=== PATIENT | male | born 1980 | race Caucasian/White ===

== ENCOUNTER 2016-12-13 13:17 | Emergency (ER) | payer BC ==
[~2016-12-13] VITALS: Ht 177.8 cm; Wt 87.0 kg
[2016-12-13 13:22] VITALS: TEMP 36.8; Ht 177.8 cm; Wt 87.0 kg
[2016-12-13] MEDS ORDERED: HYDR-5688 PO (13:39)
[2016-12-13] MEDS ORDERED: CYCL10TA6 PO (13:39)
[2016-12-13] MEDS ORDERED: LISI-461 PO (13:39)
[2016-12-13] MEDS ORDERED: RANI150T3 PO (13:40)
[2016-12-13] MEDS ORDERED: CITA20TA9 PO (13:40)
[2016-12-13] MEDS ORDERED: METO25TA3 PO (13:40)
[2016-12-13] MEDS ORDERED: PANT40TA PO (13:40)
[2016-12-13] MEDS ORDERED: KETOROLAC TROMETHAMINE 60 MG/2 ML VIAL IM STA (14:20)
[2016-12-13] MEDS ORDERED: HYDROmorphone INJ 1 MG/ML SYR IM STA (14:20)
[2016-12-13] MEDS ORDERED: ONDANSETRON 4MG OD TAB PO STA (14:20)
[2016-12-13] MEDS ORDERED: DEXAMETHASONE SOD INJ 10 MG/ML VIAL IM ONE (14:30)
[2016-12-13] MEDS ORDERED: METH4PAK PO (14:38)
--- NOTE | 2016-12-13 14:40 | EMERGENCY ROOM VISIT NOTE ---
ED Visit Note First contact with patient: 13:33 CHIEF COMPLAINT: Increased low back pain 3 days HISTORY OF PRESENT ILLNESS: Patient is a 36-year-old white male with past medical history significant for chronic low back pain who presents emergency department for evaluation of increased low back pain over the last 3-4 days. Patient works as a [employer]. His job is very labor intensive. He reports chronic midline low back pain, from his PICC line, up his lumbar spine and slightly. He receives regular Tar Heel prescriptions from his PCP, and is prescribed 15/325 mg tablet to be used up to 4 times daily. An MRI from about 3 years ago showed spinal stenosis and bulging disks in his back. He sees a chiropractor regularly. Patient reports increased pain over the last 3-4 days. It is unalleviated by his hydrocodone. He denies any radiation of his pain into his buttocks or legs. No numbness, tingling or weakness in the lower extremities. No bowel or bladder incontinence or saddle anesthesias. He has a TENS unit, has been performing some stretching exercises and recently purchased an inversion table, but has yet to try this for his symptoms. He was unable to get in with his PCP. He had previously been seen by pain management in [place] where he had a series of epidural steroid injections performed with minimal relief. They did contact the pain management office as well, but does not have an appointment until next week. He is not on any NSAIDs regularly. He had been on Mobic that this caused GI issues so it was discontinued. He reports that his last episode of pain similar to this was in 2011, when he was started on the Tar Heel. He is also on Flexeril regularly. He rates his pain a 10/10. REVIEW OF SYSTEMS: Review of systems as per HPI. All other systems reviewed were negative. 10 systems reviewed. PMH: Electronic medical records are reviewed and summarized as above/below. See Problem List. SOCIAL HISTORY: Patient lives at home with his and children. Employed as a [employer]. Does not smoke. PHYSICAL EXAM: Vital Signs: Reviewed Nurse's notes. CONSTITUTIONAL: Patient is a well-appearing 36-year-old white male who is awake and alert and sitting on the edge of the gurney in no acute distress. There is no apparent discomfort with position changes. NECK: Supple without lymphadenopathy. No thyromegaly. No meningeal signs. Full active range of motion without discomfort. CARDIOVASCULAR: Regular rate and rhythm, with normal S1 and S2, no murmur or gallop or rub is heard. No carotid bruits auscultated. No JVD. Peripheral pulses easily palpable. RESPIRATORY: Breath sounds equal and clear to auscultation without wheezes, rales, or rhonchi heard. Full and equal chest expansion without accessory muscle use or retractions. ABDOMEN: Bowel sounds are present. Abdomen is soft, nontender and nondistended. INTEGUMENTARY: No lesions or rash, normal skin turgor. LYMPH: No lymphadenopathy. SPINE: Examination of the patient's back does not demonstrate any ecchymosis, abrasions or outward signs of trauma. No erythema, increased warmth or induration. There is no reproducible midline discomfort to palpation. There is no pain over the SI joint or the sciatic notch. He has increased pain with range of motion including rotation and flexion. EXTREMITIES: Leg lengths are symmetrical. Negative logroll bilaterally. Normal strength including dorsi-flexion and plantar flexion of the great toes and ankles and flexion and extension of the knees and flexion of the hips. Negative bilateral straight leg raise testing. Lower extremity DTRs are equal and symmetrical bilaterally. Distal pulses are easily palpable. Sensation light touch is intact over the lower extremities bilaterally. EMERGENCY DEPARTMENT COURSE: The patient was seen and assessed as above. His old records were reviewed. Patient was reviewed in the [facility] Prescription Drug Monitoring Program. He receives monthly Tar Heel prescriptions from his PCP, which we discussed. Last prescription was filled on 11/27, he received 120 tablets. Treatment options were discussed with the patient. Patient was medicated with Toradol 60 mg, Decadron 10 mg, Dilaudid 1 mg IM with Zofran 4 mg ODT. 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 His is driving. The patient was advised that he may need to increase the dosage and frequency of his prescription Tar Heel. He will need to discuss this with his prescriber. As he was being discharged, he noted to nursing staff that he only had enough Tar Heel for another 3 days. As he receives regular narcotic prescriptions from his primary care provider, I advised that I'm unable to provide him with a prescription and that he would need to get it from his primary prescriber. He is previously established with [facility] for a knee surgery, and he was encouraged to contact them for further care and evaluation of his chronic back pain and pain management needs as he reports that he is not pleased with the care he is receiving from his PCP, nor able to make it [facility] for pain management. The patient does not have any new trauma to suspect fracture and therefore radiographs were not felt to be indicated. His physical exam findings are not consistent with acute cord compression or cauda equina syndrome. The patient rated his pain a 0/10 at discharge. Medication reconciliation: I attest that I have personally reviewed the patient' s current medication list. Blood pressure screening : Patient was found to have normal blood pressure on screening and does not require follow-up. Problem List Medical Problems: (1) Chronic low back pain Status: Chronic Current/Historical Medications Scheduled Citalopram Hydrobromide (Celexa), 1.5 TAB PO DAILY Cyclobenzaprine Hcl (Flexeril), 10 MG PO HS Lisinopril (Zestril), 10 MG PO DAILY Methylprednisolone (Medrol Dosepak), 0 PO DAILY Metoprolol Succinate (Toprol Xl), 25 MG PO DAILY Pantoprazole (Protonix), 40 MG PO DAILY Ranitidine Hcl (Zantac), Unknown Dose PO DAILY Scheduled PRN Hydrocodone/Acetaminophen 5MG/325MG (Tar Heel 5MG/325MG), 1 TABLET PO QID PRN for Pain Allergies Coded Allergies: No Known Allergies (Unverified , 12/13/16) Vital Signs Date Time Temp Pulse Resp B/P (MAP) Pulse Ox O2 Delivery O2 Flow Rate FiO2 12/13/16 15:14 88 16 134/76 98 12/13/16 13:22 36.8 90 18 110/75 98 Room Air Medications Administered Medications (Trade) Dose Ordered Sig/Cally Route Start Time Stop Time Status Last Admin Dose Admin Ketorolac Tromethamine (Toradol Inj) 60 mg NOW STAT IM 12/13/16 14:20 12/13/16 14:22 DC 12/13/16 14:20 60 MG Dexamethasone Sodium Phosphate (Decadron Inj) 10 mg NOW ONCE IM 12/13/16 14:30 12/13/16 14:31 DC 12/13/16 14:30 10 MG Hydromorphone HCl (Dilaudid Inj) 1 mg NOW STAT IM 12/13/16 14:20 12/13/16 14:22 DC 12/13/16 14:20 1 MG Ondansetron HCl (Zofran Odt) 4 mg NOW STAT PO 12/13/16 14:20 12/13/16 14:22 DC 12/13/16 14:20 4 MG Departure Information Impression Primary Impression: Exacerbation of chronic back pain Prescriptions Methylprednisolone (MEDROL DOSEPAK) 4 Mg Jalne 0 PO DAILY, #1 PKT Once daily as directed. Prov: Anabelle Cabello,JUSTICE 12/13/16 Referrals Alyssa Vargas (PCP) Patient Instructions My [facility] Additional Instructions DO NOT drive, drink alcohol, operate machinery, or perform dangerous activities today. You were given medications in the ER that can affect your ability to safely function or operate a vehicle. Medrol Dosepak: Once daily until the prescription is finished. Started this prescription tomorrow morning. It is best to take this earlier in the day as some patients note occasional difficulty falling asleep when taken in the late evening. Continue your Tar [place]el. May increase to 1-2 tablets every 4-6 hours as needed for severe pain. Ibuprofen(Motrin, Advil) may be used for fever or pain. Use 600mg every six hours as needed. Take with food. Avoid using more than 2400mg in a 24 hour period. Do not use 2400mg per day for more than three consecutive days without physician direction. Prolonged inappropriate use can lead to stomach upset or ulcers. This medication can be taken if you need to drive, work, or perform activities which may be dangerous when taking narcotic pain medication. (AND/OR) Acetaminophen(Tylenol) may be used for fever or pain. Use 1000mg every six hours as needed. Avoid using more than 3000mg in a 24 hour period. This medication can be taken if you need to drive, work, or perform activities which may be dangerous when taking narcotic pain medication. Rest and avoid heavy lifting until your symptoms resolve and then gradually return to full activity. A good rule of thumb is if it hurts your back to perform a certain activity, then it should be avoided until you are healthy again. A heating pad, warm compresses, or a hot shower may help with tight muscles and can be done several times a day as needed. Continue current medications. Return to the ER immediately for any numbness, tingling, severe pain, loss of control of your bowels or bladder, inability to walk, or as needed. Follow up with your primary care physician within 3-5 days for a recheck of your current condition. Notify your primary care provider that you were seen in the emergency department and treated.
[2016-12-13 15:14] VITALS: BP 134/76; PULSE 88; O2SAT 98
== END 2016-12-13 15:15 | disposition home or self-care (01) ==
LOC: C.EDB 13:20 → C.EDD 15:15
DX: M54.5 Low back pain (principal); G89.29 Other chronic pain; Z79.899 Other long term (current) drug therapy

== ENCOUNTER 2017-01-01 19:02 | Emergency (ER) | payer BC ==
[~2017-01-01] VITALS: Ht 177.8 cm; Wt 88.8 kg
[~2017-01-01 19:02] MED LIST: CITA20TA9 PO; CYCL10TA6 PO; HYDR-5688 PO; LISI-461 PO; METO25TA3 PO; PANT40TA PO; RANI150T3 PO
[2017-01-01 19:17] VITALS: TEMP 37.3; Ht 177.8 cm; Wt 88.8 kg
[2017-01-01 19:59] LABS: BASO % 0.6 %; BASO ABS # 0.04 K/uL (0-0.2); COMPLETE YES; EOS % 1.8 %; HEMATOCRIT 44.7 % (42-52); IG% 0.1 %; LYMPH % 20.1 %; LYMPH ABS # 1.43 K/uL (1.2-3.4); MEAN CELL VOLUME 89.2 fL (80-100); MEAN CORPUSCULAR HEMOGLOBIN 31.9 pg (25-34); MEAN CORPUSCULAR HGB CONC 35.8 g/dl (32-36); MEAN PLATELET VOLUME 9.9 fL (7.4-10.4); MONO % 13.3 %; NEUT % 64.1 %; PLATELET COUNT 222 K/uL (130-400); RED BLOOD COUNT 5.01 M/uL (4.7-6.1); WHITE BLOOD COUNT 7.13 K/uL (4.8-10.8)
[2017-01-01] MEDS ORDERED: CHOL1000 PO (20:02)
[2017-01-01 20:04] LABS: POINT OF CARE TROPONIN I < 0.030 ng/ml (0-0.045)
--- NOTE | 2017-01-01 20:10 | DIAGNOSTIC IMAGING REPORT ---
CHEST ONE VIEW PORTABLE CLINICAL HISTORY: Chest pain, chest tightness and shortness of breath. COMPARISON STUDY: No previous studies for comparison. FINDINGS: Lung volumes are mildly diminished. There is no consolidation to suggest pneumonia. Pulmonary vascularity is normal. No pneumothorax or pleural effusion is present. Cardiomediastinal silhouette is normal. IMPRESSION: No acute cardiopulmonary findings. Electronically signed by: Xander Chavez M.D. 01/01/2017 8:09 PM Dictated Date/Time: 01/01/2017 8:08 PM
--- NOTE | 2017-01-01 20:17 | EMERGENCY ROOM VISIT NOTE ---
History First contact with patient: 19:21 Chief Complaint: CARDIAC ASSESSMENT Stated Complaint: SOB, TIGHT CHEST, CHEST PAIN Nursing Triage Summary: Dyspnea starting at 0200 today, woke him up from sleep. Had chills same time but chills went away 0800 this morning. Denies recent illness. Dyspnea all day, has not gotten worse. Exacerbated with exertion. Pain in neck down midline chest to bottom of sternum. [place] like esophagus was contricted. Squeezing pain, also present all day. History of Present Illness The patient is a 36 year old male who presents to the Emergency Room with complaints of shortness of breath and chest tightness which started this morning. The patient states that he woke up at approximately 2 AM with a throbbing pain in the center of his chest. He states that the pain has resolved somewhat since then, but he still has pain in the center of his chest when he takes a deep breath. He also reports increased pain with walking and physical activity. He has some associated shortness of breath. He also reports associated chills, but denies taking his temperature. He denies any history of similar symptoms. The patient was recently diagnosed with hypertension, but denies any other medical problems. He denies any family history of blood clots. He does not smoke. He denies any recent travel. He denies abdominal pain, nausea, vomiting or radiation of the pain into his arms. Review of Systems A complete 10 point review of systems was reviewed with the patient with pertinent positives and negatives as per history of present illness. All else were negative. Past Medical/Surgical History Medical Problems: (1) Chronic low back pain Social History Smoking Status: Former Smoker Current/Historical Medications Scheduled Cholecalciferol (Vitamin D3), 2,500 UNITS PO DAILY Citalopram Hydrobromide (Celexa), 1.5 TAB PO DAILY Cyclobenzaprine Hcl (Flexeril), 10 MG PO HS Lisinopril (Zestril), 10 MG PO DAILY Metoprolol Succinate (Toprol Xl), 25 MG PO DAILY Pantoprazole (Protonix), 40 MG PO DAILY Ranitidine Hcl (Zantac), 150 MG PO DAILY Scheduled PRN Hydrocodone/Acetaminophen 5MG/325MG ([place] 5MG/325MG), 1 TABLET PO QID PRN for Pain Physical Exam Vital Signs Date Time Temp Pulse Resp B/P (MAP) Pulse Ox O2 Delivery O2 Flow Rate FiO2 01/01/17 23:07 84 18 134/84 97 01/01/17 22:00 84 20 138/82 97 01/01/17 21:00 88 20 139/95 94 01/01/17 20:30 100 129/91 95 01/01/17 19:41 Room Air 01/01/17 19:30 115 24 125/86 94 01/01/17 19:17 37.3 108 20 143/85 97 Room Air Physical Exam VITALS: Vitals are noted on the nurse's note and reviewed by myself. Vital signs stable. GENERAL: This is a 36-year-old male, in no acute distress, nondiaphoretic, well- developed well-nourished. HEENT: Normocephalic. PERRLA. EOMI. Mucous membranes moist. Neck is supple without nuchal rigidity. HEART: Regular rate and rhythm without murmurs gallops or rubs. LUNGS: Clear to auscultation bilaterally without wheezes, rales or rhonchi. ABDOMEN: Positive bowel sounds x 4. Soft, nontender, without masses or organomegaly. NEURO: Patient was alert and oriented to person place and time. Medical Decision & Procedures ER Provider Diagnostic Interpretation: CHEST ONE VIEW PORTABLE FINDINGS: Lung volumes are mildly diminished. There is no consolidation to suggest pneumonia. Pulmonary vascularity is normal. No pneumothorax or pleural effusion is present. Cardiomediastinal silhouette is normal. IMPRESSION: No acute cardiopulmonary findings. CT ANGIOGRAPHY OF THE CHEST, PULMONARY EMBOLUS PROTOCOL FINDINGS: No pulmonary emboli are identified. There is no evidence of thoracic aortic dissection. Size of the heart is normal. There is no pericardial effusion. No enlarged thoracic lymph nodes are present. Central airways are patent. No pneumothorax or pleural effusion is present. Lower lobe groundglass opacity suggest atelectasis. A 9 mm hypodense lateral segment hepatic lesion likely reflects a cyst. Spleen is at the upper limits of normal for size. IMPRESSION: 1. No pulmonary emboli identified. 2. Bilateral lower lobe ground glass opacities which favor atelectasis. Laboratory Results 01/01/17 19:37 Red Blood Count 5.01, Mean Corpuscular Volume 89.2, Mean Corpuscular Hemoglobin 31.9, Mean Corpuscular Hemoglobin Concent 35.8, Mean Platelet Volume 9.9, Neutrophils (%) (Auto) 64.1, Lymphocytes (%) (Auto) 20.1, Monocytes (%) (Auto) 13.3, Eosinophils (%) (Auto) 1.8, Basophils (%) (Auto) 0.6, Neutrophils # (Auto ) 4.57, Lymphocytes # (Auto) 1.43, Monocytes # (Auto) 0.95, Eosinophils # (Auto ) 0.13, Basophils # (Auto) 0.04 01/01/17 19:37 Test 01/01/17 19:37 01/01/17 19:47 White Blood Count 7.13 K/uL (4.8-10.8) Red Blood Count 5.01 M/uL (4.7-6.1) Hemoglobin 16.0 g/dL (14.0-18.0) Hematocrit 44.7 % (42-52) Mean Corpuscular Volume 89.2 fL (80-100) Mean Corpuscular Hemoglobin 31.9 pg (25-34) Mean Corpuscular Hemoglobin Concent 35.8 g/dl (32-36) Platelet Count 222 K/uL (130-400) Mean Platelet Volume 9.9 fL (7.4-10.4) Neutrophils (%) (Auto) 64.1 % Lymphocytes (%) (Auto) 20.1 % Monocytes (%) (Auto) 13.3 % Eosinophils (%) (Auto) 1.8 % Basophils (%) (Auto) 0.6 % Neutrophils # (Auto) 4.57 K/uL (1.4-6.5) Lymphocytes # (Auto) 1.43 K/uL (1.2-3.4) Monocytes # (Auto) 0.95 K/uL (0.11-0.59) Eosinophils # (Auto) 0.13 K/uL (0-0.5) Basophils # (Auto) 0.04 K/uL (0-0.2) RDW Standard Deviation 39.5 fL (36.4-46.3) RDW Coefficient of Variation 12.2 % (11.5-14.5) Immature Granulocyte % (Auto) 0.1 % Immature Granulocyte # (Auto) 0.01 K/uL (0.00-0.02) Anion Gap 9.0 mmol/L (3-11) Est Creatinine Clear Calc Drug Dose 133.2 ml/min Estimated GFR () 129.3 Estimated GFR (Non- 111.6 BUN/Creatinine Ratio 11.6 (10-20) Calcium Level 8.4 mg/dl (8.5-10.1) Total Bilirubin 0.9 mg/dl (0.2-1) Aspartate Amino Transf (AST/SGOT) 22 U/L (15-37) Alanine Aminotransferase (ALT/SGPT) 39 U/L (12-78) Alkaline Phosphatase 92 U/L (45-117) Total Protein 7.9 gm/dl (6.4-8.2) Albumin 3.8 gm/dl (3.4-5.0) Globulin 4.1 gm/dl (2.5-4.0) Albumin/Globulin Ratio 0.9 (0.9-2) Lipase 228 U/L (73-393) Thyroid Stimulating Hormone (TSH) 0.721 uIu/ml (0.300-4.500) Bedside D-Dimer > 450 ng/mlFEU (0-450) Bedside Troponin I < 0.030 ng/ml (0-0.045) Medications Administered Medications (Trade) Dose Ordered Sig/Cally Route Start Time Stop Time Status Last Admin Dose Admin Lidocaine HCl (Viscous Lidocaine 2% Soln) 20 ml STK-MED ONCE .ROUTE 01/01/17 20:26 01/01/17 20:27 DC 01/01/17 20:29 20 ML Al Hydroxide/Mg Hydroxide (Maalox Susp) 30 ml STK-MED ONCE .ROUTE 01/01/17 20:26 01/01/17 20:27 DC 01/01/17 20:29 30 ML ED Course The patient was evaluated as above. Labs were drawn and IV access was obtained. Imaging studies were performed and read by radiology as above. Patient was given a GI cocktail. Patient was reevaluated and reported he did have some relief. Discharge instructions were reviewed with the patient. The patient verbalized understanding of my assessment and treatment plan and was discharged home in good condition. Medical Decision Differential diagnosis includes acute coronary syndrome, pulmonary embolism, pneumothorax, pericarditis, myocarditis, endocarditis, anxiety, musculoskeletal pain, GERD, costochondritis, pneumonia, among others. The patient is a 36-year-old male who presents today complaining of chest pain which has been ongoing for greater than 12 hours. Labs revealed no leukocytosis , anemia or concerning electrolyte abnormalities. Troponin was not elevated, and as this pain has been ongoing for greater than 6 hours additional troponin will not be necessary. D-dimer was performed due to the patient's complaint and spit with pain and tachycardia. This was found to be elevated. CT of the chest did not show evidence of pulmonary embolism. Patient is given a GI cocktail, as I do think this is likely secondary to GERD. He did report some relief of pain after this. He was advised to continue his Protonix and Zantac and to make sure he does not miss any doses at home. Based on the patient's presentation and work up, I feel the patient is stable for outpatient treatment. The patient was educated to return to the emergency department for any worsening of their current condition or new/concerning symptoms. He will follow up with his PCP. Medication Reconcilliation Current Medication List: was personally reviewed by me Blood Pressure Screening Patient's blood pressure: Normal blood pressure Impression Primary Impression: Substernal chest pain Departure Information Dispostion Home / Self-Care Condition GOOD Referrals No Doctor, Assigned Forms IMPORTANT VISIT INFORMATION Patient Instructions My [facility] Additional Instructions You have been treated in the Emergency Department for your Non-Cardiac Chest Pain. Laboratory results and Imaging Studies have ruled out any cardiac or pulmonary cause of your chest pain. For pain control, you can use the following [id number] medicines (if >12 yo): - Regular strength (325mg/tab) Tylenol (acetaminophen) 2 tabs every 4-6 hours as needed. Do not exceed 12 tablets in a 24 hour period. Avoid taking more than 4 grams (4000 mg) of Tylenol per day. This includes any other sources of acetaminophen you may take on a regular basis. - Regular strength (200 mg/tab) Advil (ibuprofen) 1-2 tabs every 4-6 hours as needed. Do not exceed a dose of 3200 mg per day. You should schedule a follow-up appointment with your Primary Care Provider in 2 -3 days for further evaluation from today's Emergency Department visit. Return to the Emergency Department if your current symptoms worsen despite treatment course outlined above, or if you develop any of the following symptoms : worsening chest pain, associated jaw/arm pain, nausea, dizziness, shortness of breath, bloody cough, or fainting.
[2017-01-01] MEDS ORDERED: GI COCKTAIL PO STA (20:19)
[2017-01-01 20:25] LABS: BUN/CREATININE RATIO 11.6 (10-20); CALCIUM 8.4 mg/dl (8.5-10.1); CREATININE 0.86 mg/dl (0.60-1.40); POTASSIUM 3.6 mmol/L (3.5-5.1)
[2017-01-01] MEDS ORDERED: ALUMINUM/MAGNESIUM SUSP 30 ML UDC ONE (20:26)
[2017-01-01] MEDS ORDERED: LIDOCAINE HCL 2% VISC SOLN 20 ML UDC ONE (20:26)
[2017-01-01] MEDS ORDERED: OPTIRAY 320 IV PRN (20:30)
[2017-01-01 20:35] LABS: ALB/GLOB RATIO 0.9 (0.9-2); THYROID STIMULATING HORMONE 0.721 uIu/ml (0.300-4.500)
--- NOTE | 2017-01-01 22:12 | DIAGNOSTIC IMAGING REPORT ---
CT ANGIOGRAPHY OF THE CHEST, PULMONARY EMBOLUS PROTOCOL CLINICAL HISTORY: Chest pain, shortness of breath and elevated d-dimer. COMPARISON STUDY: Chest radiograph performed earlier today. TECHNIQUE: Following IV administration of 111 mL of [id number]-320, helical axial images of the chest were obtained utilizing the pulmonary embolus protocol. Maximal intensity projections and sagittal and coronal reformats were viewed on an independent 3D workstation. IV contrast was administered without complication. A dose lowering technique was utilized adhering to the principles of ALARA. CT DOSE: 475.78 mGy.cm FINDINGS: No pulmonary emboli are identified. There is no evidence of thoracic aortic dissection. Size of the heart is normal. There is no pericardial effusion. No enlarged thoracic lymph nodes are present. Central airways are patent. No pneumothorax or pleural effusion is present. Lower lobe groundglass opacity suggest atelectasis. A 9 mm hypodense lateral segment hepatic lesion likely reflects a cyst. Spleen is at the upper limits of normal for size. IMPRESSION: 1. No pulmonary emboli identified. 2. Bilateral lower lobe ground glass opacities which favor atelectasis. Electronically signed by: Xander Chavez M.D. 01/01/2017 10:10 PM Dictated Date/Time: 01/01/2017 10:03 PM
[2017-01-01 23:07] VITALS: BP 134/84; PULSE 84; O2SAT 97
== END 2017-01-01 23:08 | disposition home or self-care (01) ==
LOC: C.EDB 19:03 → C.EDC 23:08
DX: R07.2 Precordial pain (principal); M54.5 Low back pain; G89.29 Other chronic pain; Z87.891 Personal history of nicotine dependence; Z79.899 Other long term (current) drug therapy

== ENCOUNTER 2017-10-09 14:27 | Emergency (ER) | payer BC, OTHER ==
[~2017-10-09] VITALS: Ht 177.8 cm; Wt 86.2 kg
[~2017-10-09 14:27] MED LIST changes: -METO25TA3 PO; +METO25TA4 PO
[2017-10-09 14:32] VITALS: TEMP 36.7; Ht 177.8 cm; Wt 86.2 kg
[2017-10-09] MEDS ORDERED: SODIUM CHLORIDE 0.9% 1000ML 1,000 ML IV STA (14:43)
[2017-10-09] MEDS ORDERED: KETOROLAC TROMETHAMINE 15 MG/ML VIAL IV STA (14:43)
[2017-10-09] MEDS ORDERED: MoRPHine SULFATE 10 MG/ML CARP/VIAL IV STA (14:43)
[2017-10-09] MEDS ORDERED: ONDANSETRON INJ 2 MG/ML 2 ML VIAL IV STA (14:43)
[2017-10-09 15:03] LABS: BASO % 0.2 %; BASO ABS # 0.02 K/uL (0-0.2); HEMATOCRIT 49.1 % (42-52); HEMOGLOBIN 17.4 g/dL (14.0-18.0); IG# 0.02 K/uL (0.00-0.02); LYMPH % 5.2 %; LYMPH ABS # 0.64 K/uL (1.2-3.4); MEAN CELL VOLUME 90.1 fL (80-100); MEAN CORPUSCULAR HEMOGLOBIN 31.9 pg (25-34); MEAN CORPUSCULAR HGB CONC 35.4 g/dl (32-36); MEAN PLATELET VOLUME 10.4 fL (7.4-10.4); MONO % 4.3 %; MONO ABS # 0.53 K/uL (0.11-0.59); NEUT % 90.1 %; NEUT ABS # 11.16 K/uL (1.4-6.5); PLATELET COUNT 256 K/uL (130-400); RED CELL DISTRIBUTION WIDTH CV 12.3 % (11.5-14.5); RED CELL DISTRIBUTION WIDTH SD 39.6 fL (36.4-46.3); WHITE BLOOD COUNT 12.37 K/uL (4.8-10.8)
[2017-10-09 15:26] LABS: ALBUMIN 4.6 gm/dl (3.4-5.0); CALCIUM 9.9 mg/dl (8.5-10.1); CREATININE 1.6 mg/dl (0.60-1.40); POTASSIUM 4.3 mmol/L (3.5-5.1); TOTAL PROTEIN 8.7 gm/dl (6.4-8.2)
--- NOTE | 2017-10-09 15:44 | DIAGNOSTIC IMAGING REPORT ---
CT OF THE ABDOMEN AND PELVIS WITHOUT CONTRAST, STONE PROTOCOL CLINICAL HISTORY: Left flank pain. History of stones. COMPARISON STUDY: None. TECHNIQUE: Helical axial images of the abdomen and pelvis were obtained without IV or oral contrast according to renal stone protocol. A dose lowering technique was utilized adhering to the principles of ALARA. FINDINGS: A 5 mm x 3 mm left ureteropelvic junction calculus results in mild left hydroureteronephrosis. A few punctate left renal calculi are present. Unenhanced images of the spleen, adrenal glands and pancreas are normal. Several hypodense hepatic lesions are unchanged and CT of January 01, 2017. These likely reflect cysts. There is no evidence for a bowel obstruction. The appendix is normal. There is no lymphadenopathy. Pelvic calcifications represent phleboliths. There are no suspicious osseous lesions. IMPRESSION: 1. 5 mm x 3 mm left ureteropelvic junction calculus which results in mild left hydronephrosis and mild perinephric infiltration. 2. Several punctate left renal calculi. Electronically signed by: Xander Chavez M.D. 10/09/2017 3:43 PM Dictated Date/Time: 10/09/2017 3:39 PM
--- NOTE | 2017-10-09 16:04 | EMERGENCY ROOM VISIT NOTE ---
History First contact with patient: 14:34 Chief Complaint: BACK PAIN Stated Complaint: BACK PAIN, VOMITING History of Present Illness The patient is a 36 year old male who presents to the Emergency Room with complaints of a possible kidney stone. Patient states that he developed a sudden onset of left lower back pain which started last night. He states the pain is a dull, throbbing pain and rates the discomfort a 10/10. He does have a prescription for hydrocodone for chronic low back pain and took this without relief. He states that nothing makes the pain better or worse. He has associated vomiting. He has had one kidney stone in the past, several years ago. He was seen at an urgent care today and told that he may have an infection in his urine and was sent here for further evaluation. He denies fevers, urinary symptoms, chest pain or shortness of breath. Review of Systems A complete 10 point review of systems was reviewed with the patient with pertinent positives and negatives as per history of present illness. All else were negative. Past Medical/Surgical History Medical Problems: (1) Chronic low back pain (2) History of kidney stones (3) Hypertension Social History Smoking Status: Never Smoker Housing Status: lives with family Current/Historical Medications Scheduled Cholecalciferol (Vitamin D3), 2,500 INTER.UNIT PO DAILY Citalopram Hydrobromide (Celexa), 30 MG PO DAILY Cyclobenzaprine Hcl (Flexeril), 10 MG PO HS Lisinopril (Zestril), 10 MG PO DAILY Metoprolol Succinate (Toprol Xl), 25 MG PO DAILY Ondasetron Odt (Zofran Odt), 4 MG SL Q6H Pantoprazole (Protonix), 40 MG PO DAILY Ranitidine Hcl (Zantac), 150 MG PO DAILY Tamsulosin Hcl (Flomax), 0.4 MG PO DAILY Scheduled PRN Hydrocodone/Acetaminophen 5MG/325MG ([place] 5MG/325MG), 1 TABLET PO QID PRN for Pain Oxycodone Ir (Roxicodone Ir), 1 TAB PO Q4H PRN for Pain Physical Exam Vital Signs Date Time Temp Pulse Resp B/P (MAP) Pulse Ox O2 Delivery O2 Flow Rate FiO2 10/09/17 16:59 73 16 125/79 97 Room Air 10/09/17 14:32 36.7 75 18 138/103 97 Room Air Physical Exam VITALS: Vitals are noted on the nurse's note and reviewed by myself. Vital signs stable. GENERAL: This is a 36-year-old male, in no acute distress but uncomfortable appearing, nondiaphoretic, well-developed well-nourished. SKIN: No rashes noted HEART: Regular rate and rhythm without murmurs gallops or rubs. LUNGS: Clear to auscultation bilaterally without wheezes, rales or rhonchi. No retractions or accessory muscle use. ABDOMEN: Positive bowel sounds x 4. Soft, nontender to palpation. Mild left CVA tenderness. NEURO: Patient was alert and oriented to person place and time. Medical Decision & Procedures ER Provider Diagnostic Interpretation: CT OF THE ABDOMEN AND PELVIS WITHOUT CONTRAST, STONE PROTOCOL CLINICAL HISTORY: Left flank pain. History of stones. COMPARISON STUDY: None. TECHNIQUE: Helical axial images of the abdomen and pelvis were obtained without IV or oral contrast according to renal stone protocol. A dose lowering technique was utilized adhering to the principles of ALARA. FINDINGS: A 5 mm x 3 mm left ureteropelvic junction calculus results in mild left hydroureteronephrosis. A few punctate left renal calculi are present. Unenhanced images of the spleen, adrenal glands and pancreas are normal. Several hypodense hepatic lesions are unchanged and CT of January 01, 2017. These likely reflect cysts. There is no evidence for a bowel obstruction. The appendix is normal. There is no lymphadenopathy. Pelvic calcifications represent phleboliths. There are no suspicious osseous lesions. IMPRESSION: 1. 5 mm x 3 mm left ureteropelvic junction calculus which results in mild left hydronephrosis and mild perinephric infiltration. 2. Several punctate left renal calculi. Laboratory Results 10/09/17 14:38 Red Blood Count 5.45, Mean Corpuscular Volume 90.1, Mean Corpuscular Hemoglobin 31.9, Mean Corpuscular Hemoglobin Concent 35.4, Mean Platelet Volume 10.4, Neutrophils (%) (Auto) 90.1, Lymphocytes (%) (Auto) 5.2, Monocytes (%) (Auto) 4.3, Eosinophils (%) (Auto) 0.0, Basophils (%) (Auto) 0.2, Neutrophils # (Auto) 11.16, Lymphocytes # (Auto) 0.64, Monocytes # (Auto) 0.53, Eosinophils # (Auto) 0.00, Basophils # (Auto) 0.02 10/09/17 14:38 Test 10/09/17 14:38 10/09/17 15:54 White Blood Count 12.37 K/uL (4.8-10.8) Red Blood Count 5.45 M/uL (4.7-6.1) Hemoglobin 17.4 g/dL (14.0-18.0) Hematocrit 49.1 % (42-52) Mean Corpuscular Volume 90.1 fL (80-100) Mean Corpuscular Hemoglobin 31.9 pg (25-34) Mean Corpuscular Hemoglobin Concent 35.4 g/dl (32-36) Platelet Count 256 K/uL (130-400) Mean Platelet Volume 10.4 fL (7.4-10.4) Neutrophils (%) (Auto) 90.1 % Lymphocytes (%) (Auto) 5.2 % Monocytes (%) (Auto) 4.3 % Eosinophils (%) (Auto) 0.0 % Basophils (%) (Auto) 0.2 % Neutrophils # (Auto) 11.16 K/uL (1.4-6.5) Lymphocytes # (Auto) 0.64 K/uL (1.2-3.4) Monocytes # (Auto) 0.53 K/uL (0.11-0.59) Eosinophils # (Auto) 0.00 K/uL (0-0.5) Basophils # (Auto) 0.02 K/uL (0-0.2) RDW Standard Deviation 39.6 fL (36.4-46.3) RDW Coefficient of Variation 12.3 % (11.5-14.5) Immature Granulocyte % (Auto) 0.2 % Immature Granulocyte # (Auto) 0.02 K/uL (0.00-0.02) Anion Gap 8.0 mmol/L (3-11) Est Creatinine Clear Calc Drug Dose 65.9 ml/min Estimated GFR () 63.3 Estimated GFR (Non- 54.6 BUN/Creatinine Ratio 7.7 (10-20) Calcium Level 9.9 mg/dl (8.5-10.1) Total Bilirubin 1.1 mg/dl (0.2-1) Aspartate Amino Transf (AST/SGOT) 25 U/L (15-37) Alanine Aminotransferase (ALT/SGPT) 54 U/L (12-78) Alkaline Phosphatase 91 U/L (45-117) Total Protein 8.7 gm/dl (6.4-8.2) Albumin 4.6 gm/dl (3.4-5.0) Globulin 4.1 gm/dl (2.5-4.0) Albumin/Globulin Ratio 1.1 (0.9-2) Urine Color DK YELLOW Urine Appearance CLEAR (CLEAR) Urine pH 5.5 (4.5-7.5) Urine Specific [place] 1.045 (1.000-1.030) Urine Protein 2+ (NEG) Urine Glucose (UA) NEG (NEG) Urine Ketones TRACE (NEG) Urine Occult Blood 3+ (NEG) Urine Nitrite NEG (NEG) Urine Bilirubin NEG (NEG) Urine Urobilinogen NEG (NEG) Urine Leukocyte Esterase TRACE (NEG) Urine WBC (Auto) 1-5 /hpf (0-5) Urine RBC (Auto) 10-30 /hpf (0-4) Urine Hyaline Casts (Auto) 1-5 /lpf (0-5) Urine Epithelial Cells (Auto) 5-10 /lpf (0-5) Urine Bacteria (Auto) NEG (NEG) Medications Administered Medications (Trade) Dose Ordered Sig/Cally Route Start Time Stop Time Status Last Admin Dose Admin Sodium Chloride 1,000 ml @ 999 mls/hr Q1H1M STAT IV 10/09/17 14:43 10/09/17 15:43 DC 10/09/17 15:01 999 MLS/HR Ondansetron HCl (Zofran Inj) 4 mg NOW STAT IV 10/09/17 14:43 10/09/17 14:45 DC 10/09/17 14:57 4 MG Ketorolac Tromethamine (Toradol Inj) 15 mg NOW STAT IV 10/09/17 14:43 10/09/17 14:45 DC 10/09/17 14:55 15 MG Morphine Sulfate (MoRPHine SULFATE INJ) 6 mg NOW STAT IV 10/09/17 14:43 10/09/17 14:45 DC 10/09/17 14:53 6 MG Medical Decision Differential diagnosis includes kidney stone, pyelonephritis, infected stone, among others. The patient is a 36-year-old male who presents today complaining of left flank pain. Labs revealed mild leukocytosis. Creatinine is slightly elevated at 1.6. Urinalysis was not suggestive of infection. CT shows a stone at the left UPJ. Patient's pain was easily controlled with IV morphine. He does take narcotics at home and will likely need higher doses due to this acute pain. He was given a prescription for OxyIR. He was given a referral for urology. He was advised to return here with worsening symptoms or any other new/concerning symptoms. Based on the patient's presentation and work up, I feel the patient is stable for outpatient treatment. The patient was educated to return to the emergency department for any worsening of their current condition or new/concerning symptoms. He will follow up with urology. Medication Reconcilliation Current Medication List: was personally reviewed by me Blood Pressure Screening Patient's blood pressure: Normal blood pressure Impression Primary Impression: Left ureteral stone Departure Information Dispostion Home / Self-Care Condition GOOD Prescriptions Tamsulosin Hcl (FLOMAX) 0.4 Mg Cap 0.4 MG PO DAILY for 10 Days, #10 CAP Prov: Grace Whitmore PA-C 10/09/17 Ondasetron Odt (ZOFRAN ODT) 4 Mg Tab 4 MG SL Q6H for Nausea, #16 TAB Prov: Grace Whitmore PA-C 10/09/17 Oxycodone Ir (Roxicodone Ir) 5 Mg Tab 1 TAB PO Q4H Y for Pain, #16 TAB For Initial Treatment Prov: Grace Whitmore PA-C 10/09/17 Referrals Perry Galloway M.D. (PCP) Abdullahi Martinez MD, Urology Patient Instructions My [facility] Additional Instructions You have been treated in the Emergency Department today for a Kidney Stone ( Nephrolithiasis). You have received pain medicine in the emergency department which impairs your ability to operate a vehicle. It is illegal for you to drive after receiving these medicines. You have been prescribed Oxy IR to be used for pain control. This is a narcotic medication. You cannot drive or consume alcohol while on this medicine. This medicine should only be used for pain that cannot be controlled with over-the- counter pain medicines. You have been prescribed Zofran to be used for any nausea or vomiting. Take as prescribed. You have been prescribed Flomax 0.4 mg to be taken ONCE daily. This medicine has been prescribed as it can help relax the smooth muscles of the urinary tract increasing transit time of the kidney stone. For pain control, you can use the following [id number] medicines (if >12 yo): - Regular strength (325mg/tab) Tylenol (acetaminophen) 2 tabs every 4-6 hours as needed. Do not exceed 12 tablets in a 24 hour period. Avoid taking more than 4 grams (4000 mg) of Tylenol per day. This includes any other sources of acetaminophen you may take on a regular basis. - Regular strength (200 mg/tab) Advil (ibuprofen) 1-2 tabs every 4-6 hours as needed. Do not exceed a dose of 3200 mg per day. You have been provided a strainer and specimen collection cup. You should strain your urine to collect any passed stones. Your stones can be placed into the specimen cup and taken to your Urologist for further evaluation. You have been provided the contact information for the on-call Urologist. You should contact the Urologist's office tomorrow to establish a follow-up appointment from today's Emergency Department visit. Return to the Emergency Department if your symptoms persist despite the treatment plan outlined above or if you develop the following symptoms: intractable pain, fever, chills, or large amounts of blood in your urine.
[2017-10-09] MEDS ORDERED: OXYC-90 PO (16:40)
[2017-10-09] MEDS ORDERED: ONDA4TAB10 SL (16:40)
[2017-10-09] MEDS ORDERED: TAMS0.4C38 PO (16:40)
[2017-10-09 16:59] VITALS: BP 125/79; PULSE 73; O2SAT 97
[2017-10-09] MEDS ORDERED: CHOL1000 PO (20:02)
== END 2017-10-09 17:05 | disposition home or self-care (01) ==
LOC: C.EDB 14:28 → C.EDA 17:05
DX: N20.9 Urinary calculus, unspecified (principal); I10 Essential (primary) hypertension

== ENCOUNTER 2017-10-18 18:11 | Emergency (ER) | payer BC ==
[~2017-10-18] VITALS: Ht 177.8 cm; Wt 86.1 kg
[~2017-10-18 18:11] MED LIST changes: +ONDA4TAB10 SL; +OXYC-90 PO; +TAMS0.4C38 PO
[2017-10-18 18:29] VITALS: TEMP 36.6; Ht 177.8 cm; Wt 86.1 kg
[2017-10-18] MEDS ORDERED: ONDANSETRON INJ 2 MG/ML 2 ML VIAL IV STA (18:44)
[2017-10-18] MEDS ORDERED: SODIUM CHLORIDE 0.9% 500ML 500 ML IV STA (18:44)
[2017-10-18] MEDS ORDERED: MoRPHine SULFATE 4 MG/ML 1 ML CARP\\VIAL IV STA (18:44)
[2017-10-18] MEDS ORDERED: KETOROLAC TROMETHAMINE 30 MG/ML VIAL IV STA (18:44)
[2017-10-18 19:16] LABS: BASO % 0.2 %; BASO ABS # 0.02 K/uL (0-0.2); EOS % 1.1 %; EOS ABS # 0.09 K/uL (0-0.5); HEMATOCRIT 45.2 % (42-52); HEMOGLOBIN 15.9 g/dL (14.0-18.0); IG# 0.02 K/uL (0.00-0.02); LYMPH % 8.8 %; LYMPH ABS # 0.74 K/uL (1.2-3.4); MEAN CORPUSCULAR HEMOGLOBIN 31.7 pg (25-34); MEAN CORPUSCULAR HGB CONC 35.2 g/dl (32-36); MEAN PLATELET VOLUME 10.1 fL (7.4-10.4); MONO % 9.7 %; MONO ABS # 0.82 K/uL (0.11-0.59); NEUT ABS # 6.75 K/uL (1.4-6.5); PLATELET COUNT 230 K/uL (130-400); RED CELL DISTRIBUTION WIDTH CV 12.2 % (11.5-14.5); RED CELL DISTRIBUTION WIDTH SD 39.8 fL (36.4-46.3); WHITE BLOOD COUNT 8.44 K/uL (4.8-10.8)
[2017-10-18 19:36] LABS: CALCIUM 9.2 mg/dl (8.5-10.1); CREATININE 1.36 mg/dl (0.60-1.40); POTASSIUM 3.5 mmol/L (3.5-5.1)
[2017-10-18] MEDS ORDERED: CHOL1000 PO (20:02)
--- NOTE | 2017-10-18 20:40 | DIAGNOSTIC IMAGING REPORT ---
KUB CLINICAL HISTORY: Left flank pain. FINDINGS: 2 AP supine abdominal radiographs are correlated with abdominal CT dated 10/09/2017. There is a nonobstructed abdominal bowel gas pattern. No evidence of intracranial free air is seen on these supine images. There is no clear radiographic evidence of nephrolithiasis on today's examination. The left proximal ureteral stones seen by CT on 10/09/2017 is not clearly identified by x-ray. Numerous calcifications in the pelvis likely represent phleboliths. The bony structures appear intact. IMPRESSION: There is no clear radiographic evidence of nephrolithiasis on today's examination. The left proximal ureteral stone seen by CT on 10/09/2017 is not visualized by x-ray. Electronically signed by: Tye Altamirano M.D. 10/18/2017 8:39 PM Dictated Date/Time: 10/18/2017 8:36 PM
[2017-10-18] MEDS ORDERED: ONDA4TAB46 PO (20:44)
--- NOTE | 2017-10-18 20:44 | EMERGENCY ROOM VISIT NOTE ---
History Report prepared by Jannie: Mary Perez Under the Supervision of: Dr. Dane Arriaga M.D. First contact with patient: 18:33 Chief Complaint: KIDNEY STONE Stated Complaint: KIDNEY STONES History of Present Illness The patient is a 36 year old male with a past medical history of HTN and kidney stones who presents to the ED with a cc of an episode of kidney stones beginning last night. The patient states that he was recently diagnosed with kidney stones and has been using the strainer, but doesn't believe he passed it yet. He states that his pain is on his left flank and left lower abdomen. He states that the pain feels like a sharp burning pain. He states that he has tried taking the Oxycodone he was prescribed for his kidney stones, but it has offered no relief. He notes that he took 2 of his 5 mg Hydrocodone that he has for his back and it offered mild relief. The patient states that he has been taking his Flomax and called Urology who told him to see his PCP since they couldn't get him in until the end of December. He notes that his PCP was closed by the time they got off the phone. He notes that his last normal bowel movement was this morning. Positive hematuria, feeling like he has to urinate, vomiting, and hot/cold sweats. Negative use of Tylenol/Ibuprofen, recent life changes, recent falls, and recent trauma. Past EMR records show that the patient was seen on the and had a CT noncontrast of his Abdomen and Pelvis that showed a 5x3 left UPJ stone. He was discharged home. Source of History: patient Onset: last night Position: abdomen, other (left flank) Quality: burning, sharp, other (kidney stone) Timing: other (episode) Modifying Factors (Relieving): other (Hydrocodone) Associated Symptoms: + diaphoresis, + vomiting, + urinary symptoms Note: The patient complains of hot flashes. The patient denies recent life changes, recent falls, and recent trauma. Review of Systems See HPI for pertinent positives and negatives. A total of ten systems were reviewed and were otherwise negative. Past Medical & Surgical Medical Problems: (1) Chronic low back pain (2) History of kidney stones (3) Hx of hiatal hernia (4) Hypertension Surgical Problems: (1) Hx of knee surgery Family History Cancer Diabetes mellitus Heart disease Hypertension Social History Smoking Status: Never Smoker Smokeless Tobacco Use: No Alcohol Use: other (12 pack a week) Marital Status: Housing Status: lives with family Occupation Status: employed Current/Historical Medications Scheduled Cholecalciferol (Vitamin D3), 2,500 INTER.UNIT PO DAILY Citalopram Hydrobromide (Celexa), 30 MG PO DAILY Cyclobenzaprine Hcl (Flexeril), 10 MG PO HS Lisinopril (Zestril), 10 MG PO DAILY Metoprolol Succinate (Toprol Xl), 25 MG PO DAILY Ondasetron Odt (Zofran Odt), 4 MG SL Q6H Pantoprazole (Protonix), 40 MG PO DAILY Ranitidine Hcl (Zantac), 150 MG PO DAILY Tamsulosin Hcl (Flomax), 0.4 MG PO DAILY Scheduled PRN Hydrocodone/Acetaminophen 5MG/325MG ([place] 5MG/325MG), 1 TABLET PO QID PRN for Pain Ondansetron Hcl (Zofran), 4 MG PO Q8H PRN for Nausea Oxycodone Ir (Roxicodone Ir), 1 TAB PO Q4H PRN for Pain Allergies Coded Allergies: No Known Allergies (Unverified , 01/01/17) Physical Exam Vital Signs Date Time Temp Pulse Resp B/P (MAP) Pulse Ox O2 Delivery O2 Flow Rate FiO2 10/18/17 20:57 68 18 129/85 98 10/18/17 19:17 75 10/18/17 19:16 70 18 137/95 98 Room Air 10/18/17 18:29 36.6 107 18 141/105 97 Room Air Physical Exam GENERAL: Awake, alert, well-appearing, NAD HENT: Normocephalic, atraumatic. EYES: Normal conjunctiva. Sclera non-icteric. PERRL. No anisocoria. NECK: Supple. No nuchal rigidity. FROM. RESPIRATORY: CTAB, no rhonchi, wheezing, crackles CARDIAC: RRR, no MRG ABDOMEN: Soft, NTND, BS+ BACK: No CVA TTP. MSK: No chest wall TTP, no LE edema NEURO: GCS 15, CN 2-12 intact, moves all 4s on command SKIN: No rash or jaundice noted. Medical Decision & Procedures ER Provider Diagnostic Interpretation: Radiology results as stated below per my review and radiologist interpretation: KUB CLINICAL HISTORY: Left flank pain. FINDINGS: 2 AP supine abdominal radiographs are correlated with abdominal CT dated 10/09/2017. There is a nonobstructed abdominal bowel gas pattern. No evidence of intracranial free air is seen on these supine images. There is no clear radiographic evidence of nephrolithiasis on today's examination. The left proximal ureteral stones seen by CT on 10/09/2017 is not clearly identified by x-ray. Numerous calcifications in the pelvis likely represent phleboliths. The bony structures appear intact. IMPRESSION: There is no clear radiographic evidence of nephrolithiasis on today's examination. The left proximal ureteral stone seen by CT on 10/09/2017 is not visualized by x-ray. Electronically signed by: Tye Altamirano M.D. 10/18/2017 8:39 PM Dictated Date/Time: 10/18/2017 8:36 PM Laboratory Results 10/18/17 19:04 Red Blood Count 5.02, Mean Corpuscular Volume 90.0, Mean Corpuscular Hemoglobin 31.7, Mean Corpuscular Hemoglobin Concent 35.2, Mean Platelet Volume 10.1, Neutrophils (%) (Auto) 80.0, Lymphocytes (%) (Auto) 8.8, Monocytes (%) (Auto) 9.7, Eosinophils (%) (Auto) 1.1, Basophils (%) (Auto) 0.2, Neutrophils # (Auto) 6.75, Lymphocytes # (Auto) 0.74, Monocytes # (Auto) 0.82, Eosinophils # (Auto) 0.09, Basophils # (Auto) 0.02 10/18/17 19:04 Test 10/18/17 19:04 White Blood Count 8.44 K/uL (4.8-10.8) Red Blood Count 5.02 M/uL (4.7-6.1) Hemoglobin 15.9 g/dL (14.0-18.0) Hematocrit 45.2 % (42-52) Mean Corpuscular Volume 90.0 fL (80-100) Mean Corpuscular Hemoglobin 31.7 pg (25-34) Mean Corpuscular Hemoglobin Concent 35.2 g/dl (32-36) Platelet Count 230 K/uL (130-400) Mean Platelet Volume 10.1 fL (7.4-10.4) Neutrophils (%) (Auto) 80.0 % Lymphocytes (%) (Auto) 8.8 % Monocytes (%) (Auto) 9.7 % Eosinophils (%) (Auto) 1.1 % Basophils (%) (Auto) 0.2 % Neutrophils # (Auto) 6.75 K/uL (1.4-6.5) Lymphocytes # (Auto) 0.74 K/uL (1.2-3.4) Monocytes # (Auto) 0.82 K/uL (0.11-0.59) Eosinophils # (Auto) 0.09 K/uL (0-0.5) Basophils # (Auto) 0.02 K/uL (0-0.2) RDW Standard Deviation 39.8 fL (36.4-46.3) RDW Coefficient of Variation 12.2 % (11.5-14.5) Immature Granulocyte % (Auto) 0.2 % Immature Granulocyte # (Auto) 0.02 K/uL (0.00-0.02) Urine Color DK YELLOW Urine Appearance CLEAR (CLEAR) Urine pH 5.0 (4.5-7.5) Urine Specific [place] 1.041 (1.000-1.030) Urine Protein 2+ (NEG) Urine Glucose (UA) NEG (NEG) Urine Ketones 1+ (NEG) Urine Occult Blood 1+ (NEG) Urine Nitrite NEG (NEG) Urine Bilirubin NEG (NEG) Urine Urobilinogen NEG (NEG) Urine Leukocyte Esterase NEG (NEG) Urine WBC (Auto) 1-5 /hpf (0-5) Urine RBC (Auto) 0-4 /hpf (0-4) Urine Hyaline Casts (Auto) 1-5 /lpf (0-5) Urine Epithelial Cells (Auto) 10-20 /lpf (0-5) Urine Bacteria (Auto) NEG (NEG) Urine Crystals CALCIUM OXALATE (NONE Urine Yeast (Auto) (NONE PRSENT) Anion Gap 7.0 mmol/L (3-11) Est Creatinine Clear Calc Drug Dose 77.5 ml/min Estimated GFR () 77.0 Estimated GFR (Non- 66.5 BUN/Creatinine Ratio 6.6 (10-20) Calcium Level 9.2 mg/dl (8.5-10.1) Laboratory results reviewed by me Medications Administered Medications (Trade) Dose Ordered Sig/Cally Route Start Time Stop Time Status Last Admin Dose Admin Ondansetron HCl (Zofran Inj) 4 mg NOW STAT IV 10/18/17 18:44 10/18/17 18:46 DC 10/18/17 19:16 4 MG Ketorolac Tromethamine (Toradol Inj) 30 mg NOW STAT IV 10/18/17 18:44 10/18/17 18:46 DC 10/18/17 19:17 30 MG Morphine Sulfate (MoRPHine SULFATE INJ) 4 mg NOW STAT IV 10/18/17 18:44 10/18/17 18:46 DC 10/18/17 19:18 4 MG Sodium Chloride 500 ml @ 999 mls/hr Q31M STAT IV 10/18/17 18:44 10/18/17 19:14 DC 10/18/17 19:20 999 MLS/HR ED Course 1837: The patient was evaluated in room A4B. A complete history and physical exam was performed. 2039: I reevaluated the patient. Discussed results and discharge instructions: He verbalized understanding and agreement. The patient is ready for discharge. Case management will schedule him an appointment with Urology. Medical Decision The patient is a 36 year old male with a past medical history of HTN and kidney stones who presents to the ED with a cc of an episode of kidney stones beginning last night. Nursing notes reviewed. Ancillary studies and prior records reviewed. Differential diagnosis: Etiologies such as renal colic, appendicitis, diverticulitis, mesenteric ischemia, aortic pathology, infections, inflammatory bowel disease, PUD, biliary pathology, UTI, as well as others were entertained. Patient was seen and evaluated the bedside. The patient was recently seen on October 09 and diagnosed with a 3 x 5 cm UPJ stone on the left side. The patient has not had any fever but has had some vomiting associated with twinges of pain. The patient is limited taking narcotic medicine and has not been taking Tylenol or NSAIDs. I did iterate to the patient that he needs to make sure that he takes all forms of these medications in order to better control his pain. Patient did have blood work completed along with urinalysis and KUB. Patient was also given medications and IV fluids for symptom control. Patient's kidney function is unremarkable. Patient's urine does show calcium oxalate and blood. No evidence of infection. Patient's white blood cell count is within normal limits. Patient is a normal H&H. Upon reassessment patient is feeling much improved. Patient's KUB does not show the stone that he had prior. He very well may have passed it. This may be residual discomfort from his prior kidney stone. I did have case mgr discussed with the patient in order to help him obtain an earlier follow-up appointment. Patient states he does have narcotic medication at home so no further medication was given at this time. Patient was counseled on Motrin Tylenol as well as the concerns of persistent opiate use. Patient was given strict follow-up, discharge, and return precautions. All questions were answered. Patient was deemed suitable for outpatient follow-up at this time. Patient agreed with the plan of care and was safely discharged home. Medication Reconcilliation Current Medication List: was personally reviewed by me Blood Pressure Screening Patient's blood pressure: Elevated blood pressure Blood pressure disposition: Elevated BP felt to be situational Impression Primary Impression: Renal colic Scribe Attestation The scribe's documentation has been prepared under my direction and personally reviewed by me in its entirety. I confirm that the note above accurately reflects all work, treatment, procedures, and medical decision making performed by me. Departure Information Dispostion Home / Self-Care Prescriptions Ondansetron Hcl (ZOFRAN) 4 Mg Tab 4 MG PO Q8H Y for Nausea, #12 TAB Prov: Dane Arriaga M.D. 10/18/17 Referrals Perry Galloway M.D. (PCP) Forms HOME CARE DOCUMENTATION FORM, IMPORTANT VISIT INFORMATION Patient Instructions ED Stone Renal W Colic, My [facility] Additional Instructions Please return to the emergency department if you have worsening or recurrent symptoms not amenable to at-home treatment. Please call for a follow-up appointment with her primary care physician. Please take your medications as prescribed. If you have other concerns and/or complaints please feel free to also call your primary care physician's office or return the ED for further evaluation, management, and treatment. You were found to have an elevated blood pressure today (>120 sytolic or >90 diastolic). Per medicare guidelines, you need to follow up with this blood pressure screening with your Primary Care Physician (PCP). For a new PCP call [phone]. You received narcotic or benzodiazepene medication while in the emergency room today. This is an addictive medication that may cause drowziness as well as constipation. Do not drive, operate heavy machinery, or drink alcohol under the influence of this medication. You may take 600 mg Ibuprofen every 6 hours as needed for pain/fever with food unless told by your physician not to take NSAIDs. You may take tylenol 650 mg every 6 hours as needed for pain/fever unless told by your physician to not take it or have liver problems. You may take motrin and tylenol separately or at the same time. Take your medications as prescribed. If you still have discomfort you may take the narcotic medication. Please be advised that these medications are habit forming, can make you sleepy, and can cause breathing issues. Do not use if you require your full attention. Take only as prescribed. You have been examined and treated today on an emergency basis only. This is not a substitute for, or an effort to provide, complete comprehensive medical care. It is impossible to recognize and treat all injuries or illnesses in a single emergency department visit. It is therefore important that you follow up closely with [facility], your PCP, and/or your specialist(s). Call as soon as possible for an appointment. Thank you for your time and consideration. I look forward to speaking with you again soon. Please don't hesitate to call us if you have any questions.
[2017-10-18 20:57] VITALS: BP 129/85; PULSE 68; O2SAT 98
== END 2017-10-18 20:57 | disposition home or self-care (01) ==
LOC: C.EDB 18:12 → C.EDA 20:57
DX: I10 Essential (primary) hypertension (principal); N23 Unspecified renal colic; Z79.899 Other long term (current) drug therapy